=== PATIENT | female | born 1970 | race African-American/Black ===

== ENCOUNTER → 2017-01-28 | Outpatient (CLI) | payer SELFPAY ==
[~2017-01-28] MED LIST: FLEXERIL10 MG PO; FOLBIC RF TABL1 EACH PO; LORTAB 7.5-5001 TAB PO; MULTIPLE VITAMI1 T11 PO; RISPERDAL2 MG PO; SEROQUEL PO; SILENOR6 MG PO; TOPAMAX200 MG PO; WELLBUTRIN PO; XANAX1 MG PO
[2017-01-28 14:48] LABS: CHOLESTEROL 184 mg/dL (0-200); GLUCOSE FASTING 87 mg/dL (70-110); HDL CHOLESTEROL 47 mg/dL (35-95); LDL CHOLESTEROL 109 mg/dL (-130); LDL/HDL RATIO 2 RATIO (0-4); TRIGLYCERIDES 139 mg/dL (10-160)
== END | disposition home or self-care (01) ==
LOC: CBAR 08:27
PROVIDERS: Surgery
DX: E66.01 Morbid (severe) obesity due to excess calories (principal)
CPT/HCPCS: 36415; 76000; 80061; 82947